=== PATIENT | female | born 1975 | race Caucasian/White ===

== ENCOUNTER → 2022-05-15 | Outpatient (CLI) | payer BC ==
--- NOTE | 2022-05-15 20:57 | CT ---
EXAMINATION TYPE: CT foot LT wo con CT DLP: 169.20 mGycm, Automated exposure control for dose reduction was used. DATE OF EXAM: 05/15/2022 4:52 PM COMPARISON: None CLINICAL INDICATION:Female, 46 years old with history of S92.355K, Left foot, 5th Mc fx TECHNIQUE: Axial images were obtained of the left foot . Additional coronal and sagittal reformatted images and soft tissue and bone window were obtained for review. 3-D reconstruction was created on a separate workstation. Contrast used: None Oral contrast used: None FINDINGS: There is acute fracture through the fifth metatarsal with callus formation. No additional f ractures are identified. No radiopaque foreign bodies. Mild soft tissue subcutaneous edema throughout the foot. IMPRESSION: Left fifth metatarsal fracture with callus formation.
== END | disposition home or self-care (01) ==
LOC: RADCTMAIN 16:24
PROVIDERS: ATTEND Podiatrist
DX: S92.355K Nondisplaced fracture of fifth metatarsal bone, left foot, subsequent encounter for fracture with nonunion (principal)

== ENCOUNTER 2022-09-12 11:00 | Day surgery (SDC) | payer BC, OTHER ==
[~2022-09-12 11:00] MED LIST: DEXAMETHASONE SOD PHOSPHATE 4 MG/ML 1 ML VIAL IV ONE; HYDROmorphone 0.5 MG/0.5 ML SYRINGE IVP PRN; LACTATED RINGERS 1,000 ML IV SCH; MIDAZOLAM 2 MG/2 ML VIAL IV PRN; ONDANSETRON 4 MG/2 ML VIAL IVP ONE; SCOPOLAMINE 1 MG/72 HR PATCH TRANSDERM ONE
[2022-09-12] MEDS ORDERED: MIDAZOLAM 2 MG/2 ML VIAL IVP ONE (12:29)
[2022-09-12] MEDS ORDERED: fentaNYL (PF) 50 MCG/1 ML VIAL IVP ONE ×2 (12:29)
[2022-09-12] MEDS ORDERED: MIDAZOLAM 2 MG/2 ML VIAL ONE (13:00)
[2022-09-12] MEDS ORDERED: SODIUM CHLORIDE 0.9% (PF) 10 ML VIAL ONE (13:00)
[2022-09-12] MEDS ORDERED: PROPOFOL 10 MG/ML 20 ML VIAL IV ONE (13:00)
[2022-09-12] MEDS ORDERED: HYDROmorphone (PF) 1 MG/ML ONE (13:00)
[2022-09-12] MEDS ORDERED: DEXAMETHASONE SOD PHOSPHATE 4 MG/ML 1 ML VIAL ONE (13:00)
[2022-09-12] MEDS ORDERED: ROPIVACAINE 5 MG/ML 30 ML VIAL ONE (13:00)
[2022-09-12] MEDS ORDERED: LIDOCAINE 2% INJ 20 MG/ML (2 ML VIAL) ONE (13:00)
[2022-09-12] MEDS ORDERED: PHENYLEPHRINE-0.9% NACL SYG 1,000 MCG/10 ML SYRINGE ONE (13:00)
--- NOTE | 2022-09-12 14:04 | P.OP ---
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 The patient was brought into the operative room and placed on table in the supine position. Timeout was taken to confirm corre ct patient identifiers, correct lateral view of surgery and correct procedure. When all staff in the room were in agreement timeout, the patient was induced and placed under general anesthesia. A well-padded tourniquet was placed the left calf distal to the fibular neck. The left leg was then prepped and draped usual manner. The left leg was exsanguinated and the tourniquet inflated to 250 mmHg. Under direct fluoroscopic visualization, the areas marked for incision planning proximal to the fifth metatarsal base. Incision was deepened bluntly dissected down to the base of the fifth metatarsal. Under direct fluoroscopic visualization, a guidewire for a 4.5 mm cannulated Katalina screw was advanced into the fifth metatarsal base. Once the trajectory was correct both on AP and lateral views, the wire was advanced past the fracture line. Drilling that was completed passed fracture line over the wire. The hole was then tapped. A 4.5 mm x 45 mm [employer] fracture screw was placed at the drill hole in the fifth metatarsal base and advanced until the threads were distal to the fracture and the head engaged the proximal cortex of the fifth metatarsal base. Final fluoroscopic imaging showed that the screw was within the medullary canal of the fifth metatarsal both on AP, lateral, and oblique views. The wound is then thoroughly irrigated with antibiotic saline. Skin was closed with 3-0 nylon. Nonadherent gauze and dry sterile dressing applied the left foot. Tourniquet was released and capillary refill return to all digits on the left foot. The patient's placed in a short fracture boot with ankle neutral position. Anesthesia was reversed and the patient was taken recovery with vital signs stable
[2022-09-12 14:14] VITALS: TEMP 97
--- NOTE | 2022-09-12 14:39 | P.ANPRN ---
Procedure Note - Anesthesia - Nerve Block Performed Left Adductor Canal Single Time Out Performed: Yes (1228) Date of Procedure: 09/12/22 Location of Patient: PreOp Indication: Acute Post-Operative Pain, Dx/Pain Location (Left foot), Requested by Surgeon Specifically requested for management of pain by DrShilpa: Cj Tomlin Sedation Type: Sedate with meaningful contact maintained Position: Supine Catheter: None Needle Types: Pajunk Needle Gauge: 21 (100 mm) Ultrasound used to visualize needle placement: Yes Ultrasound used to observe medication spread: Yes Injectate: 0.5% Ropivacaine (see comment for volume) (20 cc + 2mg of decadron + 10 cc of saline) Blood Aspirated: No Pain Paresthesia on Injection Noted: No Resistance on Injection: Normal Image Stored and Saved: Yes Events: Uneventful and Well Tolerated Left Popliteal Single Time Out Performed: Yes (1228) Date of Procedure: 09/12/22 Location of Patient: PreOp Indication: Acute Post-Operative Pain, Dx/Pain Location (Left foot) Specifically requested for management of pain by Dr.: Cj Tomlin Sedation Type: Sedate with meaningful contact maintained Preparation: Sterile Prep Position: Right Lateral Catheter: None Needle Types: Pajunk (100 mm) Ultrasound used to visualize needle placement: Yes Ultrasound used to observe medication spread: Yes Injectate: 0.5% Ropivacaine (see comment for volume) (20 cc + 2mg of decadron + 10 cc of saline) Blood Aspirated: No Pain Paresthesia on Injection Noted: No Resistance on Injection: Normal Image Stored and Saved: Yes Events: Uneventful and Well Tolerated
[2022-09-12 14:53] VITALS: PULSE 69; RESP 18
[2022-09-12 15:05] VITALS: BP 125/81
== END 2022-09-12 15:45 | disposition home or self-care (01) ==
LOC: OR 11:00
PROVIDERS: ATTEND Podiatrist
DX: S92.352K Displaced fracture of fifth metatarsal bone, left foot, subsequent encounter for fracture with nonunion (principal); G89.18 Other acute postprocedural pain; M06.9 Rheumatoid arthritis, unspecified; G43.909 Migraine, unspecified, not intractable, without status migrainosus; Z82.49 Family history of ischemic heart disease and other diseases of the circulatory system; Z98.51 Tubal ligation status; Z88.5 Allergy status to narcotic agent; X58.XXXD Exposure to other specified factors, subsequent encounter
CPT/HCPCS: 28485; 64447; 81025; 64445; 76942; C1713; J2250; J1100; J0690; J2405; J1170 ×2; J2795; J2370; J2704; J2001; J3010

== ENCOUNTER → 2023-01-07 | Outpatient (CLI) | payer OTHER ==
--- NOTE | 2023-01-07 08:41 | MM ---
Reason for Exam: Clinical finding. Risk Values: Caitlin 5 year model risk: 0.5%. NCI Lifetime model risk: 6.4%. Tissue Density: There are scattered fibroglandular densities. Findings: Analyzed By CAD. No suspicious mass or architectural distortion or group of calcifications within either breast. Overall Assessment: Incomplete: need additional imaging evaluation, BI-RAD 0 Management: Diagnostic Breast Ultrasound of the left breast. A clinical breast exam by your physician is recommended on an annual basis and results should be correlated with mammographic findings. This exam should not preclude additional follow-up of suspicious palpable abnormalities. Results were given to the patient verbally at the time of exam. Note on Caitlin scores and lifetime risk: 1. A Caitlin score greater than 3% is considered moderate risk. If this is the case, consider specialist referral to assess eligibility for a risk reducing agent. If overall lifetime risk for the development of breast cancer is 20% or higher, the patient may qualify for future screening with alternating mammogram and breast MRI. Electronically signed and approved by: Deepak Bobo D.O.
--- NOTE | 2023-01-07 09:09 | USB ---
Reason for Exam: Clinical finding. Patient History: Menarche at age 13. First Full-Term at age 20. Premenopausal. Risk Values: Caitlin 5 year model risk: 0.6%. NCI Lifetime model risk: 7.7%. Technique: Method: Targeted. Findings: The area of palpable concern of the left breast, the axilla of the left breast and the retroareolar of the left breast were scanned. Targeted ultrasound of the left breast the palpable amount was performed in the region of 5:00. Additional evaluation of the nipple and axial detail was performed. . No solid or cystic mass identified. Overall Assessment: Negative, BI-RAD 1 Management: Screening Mammogram of both breasts in 1 year. A clinical breast exam by your physician is recommended on an annual basis and results should be correlated with mammographic findings. This exam should not preclude additional follow-up of suspicious palpable abnormalities. Results were given to the patient verbally at the time of exam. Electronically signed and approved by: Deepak Bobo D.O.
== END | disposition home or self-care (01) ==
LOC: RADMAMWWP 08:08
PROVIDERS: ATTEND Family Medicine
DX: R92.2 Inconclusive mammogram (principal); N63.20 Unspecified lump in the left breast, unspecified quadrant; N64.4 Mastodynia
CPT/HCPCS: 77062; 77066

== ENCOUNTER → 2023-05-30 | Outpatient (CLI) | payer OTHER ==
--- NOTE | 2023-05-30 12:36 | CT ---
EXAMINATION TYPE: CT brain wo con DATE OF EXAM: 05/30/2023 COMPARISON: None HISTORY: Migraines, dizziness, nausea, vomiting, seeing floaters. CT DLP: 1047.[address] of the brain was performed. The ventricles, basal cisterns and sulci overlying the cerebral convexities demonstrate a normal appe arance. There is no evidence for intracranial hemorrhage or sulcal effacement. No mass effects are seen. Osseous calvarium is intact. If symptoms persist consider MRI as clinically warranted. IMPRESSION: 1. No acute intracranial process is seen at this time.
== END | disposition home or self-care (01) ==
LOC: RADCTMAIN 11:16
PROVIDERS: ATTEND Family Medicine
DX: M35.2 Behcet's disease (principal); H53.9 Unspecified visual disturbance; G43.109 Migraine with aura, not intractable, without status migrainosus; M54.2 Cervicalgia; R55 Syncope and collapse; R68.89 Other general symptoms and signs; R29.898 Other symptoms and signs involving the musculoskeletal system
CPT/HCPCS: 70450

== ENCOUNTER → 2023-10-22 | Outpatient (CLI) | payer OTHER ==
--- NOTE | 2023-10-23 05:41 | MR ---
EXAMINATION TYPE: MR brain wo con DATE OF EXAM: 10/22/2023 COMPARISON: CT brain May 30, 2023 HISTORY: Migraine back of head TECHNIQUE: Multiplanar, multisequence imaging of the brain and brainstem is performed without IV cont rast. FINDINGS: Diffusion weighted images demonstrate no evidence of a recent infarct or other diffusion abnormality. There is no worrisome extra-axial fluid collection. The ventricular system and cisternal spaces are normal in size and appearance. The brain volume is age appropriate. Scattered foci of T2 hyperintens ity are seen throughout the white matter bilaterally. Approximately 25 small scattered lesions are se en. Lesions are nonspecific in appearance and distribution. Midline structures demonstrate normal morphology. The craniocervical junction appears within normal limits. Normal vascular flow voids are present. The visualized sinuses are clear and the globes are i ntact. IMPRESSION: Mild to moderate nonspecific white matter changes maybe on the basis of altered vascular mechanics related to products of chronic migraine headaches. Other etiologies not excluded.
== END | disposition home or self-care (01) ==
LOC: RADMRIMAIN 21:00
PROVIDERS: ATTEND Family Medicine
DX: G43.909 Migraine, unspecified, not intractable, without status migrainosus (principal); G31.89 Other specified degenerative diseases of nervous system
CPT/HCPCS: 70551

== ENCOUNTER → 2024-04-01 | Outpatient (CLI) | payer OTHER ==
--- NOTE | 2024-04-01 08:22 | MM ---
Reason for Exam: Follow-up at short interval from prior study. Patient History: Menarche at age 13. First Full-Term at age 20. Premenopausal. Last menstrual period: 03/19/2024 Risk Values: Caitlin 5 year model risk: 0.7%. NCI Lifetime model risk: 7.6%. Prior Study Comparison: 01/07/2023 Bilateral MG 3D diag mammo w/cad LT, [facility]. 01/07/2023 Left US breast limited , [facility]. Tissue Density: There are scattered areas of fibroglandular density. Findings: Analyzed By CAD. The pattern is symmetrical. No significant interval change is evident. No mammographic abnormality in the upper inner left breast at the patient's previous palpable area. Patient denies any palpable abnormality currently No suspicious groups of microcalcifications, spiculated or lobular masses, architectural distortion or other secondary signs of malignancy are mammographically apparent. Overall Assessment: Negative, BI-RAD 1 Management: Screening Mammogram of both breasts in 1 year. A negative mammogram report should not preclude additional follow up of suspicious palpable abnormalities. Patient should continue monthly self breast exam. A clinical breast exam by your physician is recommended on an annual basis and results should be correlated with mammographic findings. Note on Caitlin scores and lifetime risk: 1. A Caitlin score greater than 3% is considered moderate risk. If this is the case, consider specialist referral to assess eligibility for a risk reducing agent. 2. If overall lifetime risk for the development of breast cancer is 20% or higher, the patient may qualify for future screening with alternating mammogram and breast MRI. [facility], , 04/01/2024 8:00 AM. Electronically signed and approved by: Khalif Gregory D.O. Radiologis
== END | disposition home or self-care (01) ==
LOC: RADMAMWWP 07:39
PROVIDERS: ATTEND Family Medicine
DX: R92.8 Other abnormal and inconclusive findings on diagnostic imaging of breast
CPT/HCPCS: 77062; 77066

== ENCOUNTER → 2024-10-23 | Outpatient (CLI) | payer BC ==
--- NOTE | 2024-10-23 13:52 | CA ---
Exercise Stress Test Report Name: Madie Lucero Exam Date: 10/23/2024 11:36 Exam Location: [place] Stress Ht (in): 60 Wt (lb): 165 BSA: 1.72 Ordering Phys: Serafin Irizarry MD Referring Phys: ANTONIO Technologist: MAT ARMAS Age: 49 Gender: F : 1975 Procedure CPT: Indications: R07.9 CHEST PAIN ICD-10 Codes: Patient History: Medications: NORCO,,,, AMBIEN,,, Meds past 24 hrs: Pretest Chest Pain: STRESS TEST Silvio Protocol Exercise Duration (min:sec): 06:[address] Depressions (mm): Angina Score: Amaya Score: Resting HR (bpm): 79 Peak HR (bpm): 155 Resting BP (mmHg): 117 / 80 Peak BP (mmHg): 218 / 106 MPHR: 173 Target HR: 147 % MPHR: 90 METS: 7.1 Total Dose: Peak Dose: Atropine: Double Product: 26640 BP Response: Stress Termination: TARGET HR REACHED/MAX EXERTION Stress Symptoms: CHEST PAIN Stress Summary: ECG ANALYSIS Resting ECG: Stress ECG: CONCLUSIONS Good exercise tolerance Normal electrocardiogram stress testing Dr. Daniel Solano MD (Electronically Signed) Final Date: 23 October 2024 13:51
--- NOTE | 2024-10-30 16:59 | P.HOLTER ---
72 HOUR HOLTER MONITOR : INDICATION: Chest pain, lightheadedness and dizziness, palpitations, R07.9 START DATE: 10/23/2024 END DATE: 10/26/2024 Patient was moitored for 3 days FINDINGS: Max HR: 140 BPM Min HR: 47 BPM Average HR: 78 BPM Supra-Ventricular ectopic burden: Less than 0.01% Ventricular ectopic burden: 0% Normal QTc Normal heart rate variability There were no signficant atrial fibrillation, atrial flutter, or sustained ventricular tachycardia episodes. There were no high-grade AV blocks There were no significant pauses greater than 2 seconds. Patient symptoms of chest pain, palpitations, lightheadedness, weakness corresponded to normal sinus rhythm. CONCLUSION: Overall nonrevealing extended Holter monitor report Please correlate clinically. Aayush Jaramillo MD, FACC, RPVI Thank you for allowing [facility] to participate in this patient's care. Feel free to reach out in case of any followup questions.
== END | disposition home or self-care (01) ==
LOC: RADNMMAIN 10:16
PROVIDERS: ATTEND Family Medicine
DX: R00.0 Tachycardia, unspecified (principal); R00.2 Palpitations; R42 Dizziness and giddiness
CPT/HCPCS: 93017; 93225